=== PATIENT | female | born 1960 | race Caucasian/White ===

== ENCOUNTER 2022-03-03 01:00 | Emergency (ER) | payer OTHER ==
[~2022-03-03] VITALS: Ht 167.6 cm; Wt 65.8 kg
--- NOTE | 2022-03-03 01:34 | NUR ---
[id number]. HYPOGLYCEMIA NOTED @ 37, UNCONSCIOUS GIVEN 250ML D10 EN ROUTE BY EMS. PT CURRENTLY A&OX4 BREATHING UNLABORED. PLACED ON MONITOR AND V/S WNL
--- NOTE | 2022-03-03 01:37 | NUR ---
POC BG 196
[2022-03-03 03:23] LABS: BASOPHILS # (AUTO) 0.1 K/uL (0.0-0.2); BASOPHILS % (AUTO) 0.8 % (0.0-2.0); EOSINOPHILS % (AUTO) 4.3 % (0.0-6.0); HEMATOCRIT 37 % (33-45); HEMOGLOBIN 12.1 g/dL (11.5-14.8); LYMPHOCYTES # (AUTO) 1.6 K/uL (0.8-4.8); LYMPHOCYTES % (AUTO) 25.8 % (20.0-44.0); MEAN CORPUSCULAR HGB CONC 33 g/dl (31.0-36.0); MEAN CORPUSCULAR VOLUME 91 fL (82-100); MONOCYTES # (AUTO) 0.5 K/uL (0.1-1.30); MONOCYTES % (AUTO) 8.2 % (2.0-12.0); NEUTROPHILS # (AUTO) 3.9 K/uL (1.8-8.9); NEUTROPHILS % (AUTO) 60.9 % (43.0-81.0); PLATELET COUNT (AUTO) 211 K/uL (150-450); RED BLOOD CELL COUNT(AUTO) 4.09 MIL/uL (4.0-5.2); WHITE BLOOD COUNT (AUTO) 6.3 K/uL (4.3-11.0)
[2022-03-03 03:33] LABS: CALCIUM, SERUM 9.2 mg/dL (8.5-10.1); CREATININE 0.7 mg/dL (0.6-1.3); POTASSIUM 3.7 mmol/L (3.5-5.1)
--- NOTE | 2022-03-03 05:00 | NUR ---
Patient discharged to home in stable condition. Written and verbal after care instructions given. Patient verbalizes understanding of instruction.IV removed. Catheter intact and site benign. Pressure and 4x4 applied to site. No bleeding noted.
[2022-03-03 06:55] VITALS: BP 133/75
== END 2022-03-03 05:00 | disposition home or self-care (01) ==
LOC: ER 01:24
DX: E10.641 Type 1 diabetes mellitus with hypoglycemia with coma (principal)
CPT/HCPCS: 36415; 80048-TC; 82962-TC; 85025-TC